=== PATIENT | female | born 1995 | race Caucasian/White ===

== ENCOUNTER 2016-11-04 19:24 | Emergency (ER) | payer MEDICAID, OTHER ==
[~2016-11-04] VITALS: Ht 165.1 cm; Wt 70.0 kg
[~2016-11-04 19:24] MED LIST: PREN-88 PO
[2016-11-04] MEDS ORDERED: ACETAMINOPHEN 325MG TABLET PO ONE (21:45)
[2016-11-04] MEDS ORDERED: ONDANSETRON 4MG ODT PO ONE (22:00)
[2016-11-04 22:26] LABS: CLARITY URINE CLEAR (CLEAR); COLOR URINE YELLOW (YELLOW); GLUCOSE URINE NEGATIVE (NEGATIVE); KETONES URINE NEGATIVE (NEGATIVE); LEUKOCYTE ESTERASE URINE TRACE (NEGATIVE); NITRITE URINE NEGATIVE (NEGATIVE); OCCULT BLOOD URINE NEGATIVE (NEGATIVE); PROTEIN URINE NEGATIVE (NEGATIVE); SPECIFIC GRAVITY URINE 1.014 (1.005-1.030); UROBILINOGEN URINE 0.2 E.U./dL (0.2-1.0)
[2016-11-04 22:33] LABS: HEMOGLOBIN. 11.7 g/dL (12.0-16.0); MEAN CORPUSCULAR HEMOGLOBIN 31.1 pg (28.0-32.0); MEAN CORPUSCULAR HGB CONC 34.5 g/dL (31.0-37.0); MEAN CORPUSCULAR VOLUME 90.1 fL (81.0-99.0); PLATELET 236 x1000/uL (130-400); RED BLOOD CELL COUNT 3.78 mill/uL (4.2-5.4); RED CELL DISTRIBUTION WIDTH 12.8 % (11.6-14.6); WHITE BLOOD COUNT 8.5 x1000/uL (4.5-11.0)
[2016-11-04 22:36] LABS: HCG SCREEN POSITIVE
[2016-11-04 22:37] LABS: CHLORIDE 103 mEq/L (98-107); INDEX HEMOLYSI 1 (1-3); INDEX ICTERIC 1 (1-4); INDEX LIPEMIC 1 (1-3)
[2016-11-04 22:43] LABS: ANION GAP 12; CALCIUM 8.1 mg/dL (8.5-10.1); CARBON DIOXIDE 27 mEq/L (21-32); UREA NITROGEN BLOOD 8 mg/dL (7-21); eGFR > 60 mL/min (>60)
[2016-11-04 22:44] LABS: RBC URINE NONE SEEN /hpf (0-2); SQUAMOUS EPITHELIAL CELL URINE 1+ /lpf (RARE/1+); WBC URINE NONE SEEN /hpf (0-2)
[2016-11-04 22:45] LABS: BACTERIA URINE 1+
[2016-11-04 22:46] LABS: PLATELET ESTIMATE NORMAL
[2016-11-05 00:56] VITALS: BP 115/79
== END 2016-11-05 02:08 | disposition home or self-care (01) ==
LOC: ER 21:34
DX: O26.892 Other specified pregnancy related conditions, second trimester (principal); R10.2 Pelvic and perineal pain; Z3A.18 18 weeks gestation of pregnancy
CPT/HCPCS: 36415; 76700; 76805; 76857; 80048; 81001; 84703; 85007; 85027; 86850; 86900; 86901; 99285; Q0162; Z7610

== ENCOUNTER 2017-04-05 04:16 | Inpatient (IN) | payer MEDICAID, OTHER ==
[~2017-04-05] VITALS: Ht 165.1 cm; Wt 82.6 kg
[2017-04-05] MEDS ORDERED: LACTATED RINGERS 1,000 ML IV SCH (05:24)
[2017-04-05] MEDS ORDERED: DEXT 5%/LR + PITOCIN 20UNITS/L 1,000 ML IV SCH (05:24)
[2017-04-05] MEDS ORDERED: METHYLERGONOVINE MALEATE 0.2 MG/ML IM PRN ×2 (05:30→09:00)
[2017-04-05] MEDS ORDERED: BUTORPHANOL TARTRATE 2 MG/ML VIAL IV PRN (05:30)
[2017-04-05] MEDS ORDERED: AMPICILLIN 2,000 MG in SODIUM CHLORIDE 0.9% 100 ML IV SCH (05:30)
[2017-04-05] MEDS ORDERED: MISOPROSTOL 100MCG TABLET VG SCH (05:30)
[2017-04-05 06:21] LABS: BASOPHILS % 0.3 % (0.0-2.0); EOSINOPHILS % 0.1 % (0.0-5.0); HEMATOCRIT. 37.8 % (36.0-48.0); HEMOGLOBIN. 12.9 g/dL (12.0-16.0); LYMPHOCYTES % 10.3 % (20.0-50.0); MEAN CORPUSCULAR HEMOGLOBIN 30.6 pg (28.0-32.0); MEAN CORPUSCULAR VOLUME 90.1 fL (81.0-99.0); MEAN PLATELET VOLUME 8.7 fl (7.4-10.4); NEUTROPHILS % 85.3 % (40.0-76.0); PLATELET 223 x1000/uL (130-400); RED BLOOD CELL COUNT 4.19 mill/uL (4.2-5.4); RED CELL DISTRIBUTION WIDTH 12.5 % (11.6-14.6)
[2017-04-05 06:28] LABS: INR 0.9; PARTIAL THROMBOPLASTIN TIME 32.2 sec (23.4-31.0); PROTHROMBIN TIME 9.7 sec (9.4-11.6)
[2017-04-05 06:35] LABS: GLUCOSE URINE NEGATIVE (NEGATIVE); KETONES URINE NEGATIVE (NEGATIVE); LEUKOCYTE ESTERASE URINE 2+ (NEGATIVE); NITRITE URINE NEGATIVE (NEGATIVE); OCCULT BLOOD URINE NEGATIVE (NEGATIVE); PROTEIN URINE NEGATIVE (NEGATIVE); SPECIFIC GRAVITY URINE 1.016 (1.005-1.030); UROBILINOGEN URINE 0.2 E.U./dL (0.2-1.0)
[2017-04-05 06:45] LABS: CLARITY URINE CLEAR (CLEAR); COLOR URINE YELLOW (YELLOW)
[2017-04-05 06:54] LABS: *AMPHETAMINES SCREEN URINE NEGATIVE (NEGATIVE); *BARBITURATES SCREEN URINE NEGATIVE (NEGATIVE); *BENZODIAZEPINES SCREEN URINE NEGATIVE (NEGATIVE); *COCAINE SCREEN URINE NEGATIVE (NEGATIVE); CANNABINOID URINE SCREEN NEGATIVE (NEGATIVE); METHADONE URINE SCREEN NEGATIVE (NEGATIVE); OPIATES URINE SCREEN NEGATIVE (NEGATIVE); PHENCYCLIDINE URINE SCREEN NEGATIVE (NEGATIVE)
[2017-04-05 06:59] LABS: HEPATITIS B SURFACE ANTIGEN NEGATIVE; RUBELLA IGG 40.9 IU/mL (4.99-10)
[2017-04-05] MEDS ORDERED: LIDOCAINE HCL 1% 20ML VIAL (Pyxis) INJ ONE (08:31)
[2017-04-05] MEDS ORDERED: RHO(D) IMMUNE GLOBULIN 300 MCG/SYR IM PRN (09:00)
[2017-04-05] MEDS ORDERED: IBUPROFEN 400MG TABLET PO PRN (09:00)
[2017-04-05] MEDS ORDERED: BISACODYL 10MG SUPP PR PRN (09:00)
[2017-04-05] MEDS ORDERED: OXYCODONE HCL/ACETAMINOPHEN 5/325MG TABLET PO PRN ×2 (09:00)
[2017-04-05] MEDS ORDERED: PRENATAL VIT/FE FUMARATE/FA TABLET PO SCH (09:00)
[2017-04-05] MEDS ORDERED: LANOLIN OINT 0.25 GM TUBE TOP PRN (09:00)
[2017-04-05] MEDS ORDERED: DIPHENHYDRAMINE 25MG CAPSULE PO PRN (09:00)
[2017-04-05] MEDS: DEXT 5%/LR + PITOCIN 20UNITS/L 1,000 ML IV SCH ×2 (09:45→10:16)
[2017-04-05 11:00] VITALS: BP 104/51
[2017-04-05 11:45] VITALS: BP 98/51
[2017-04-05] MEDS ORDERED: AMPICILLIN 1,000 MG in SODIUM CHLORIDE 0.9% 50 ML IV SCH (12:00)
[2017-04-05] MEDS ORDERED: BENZOCAINE/LANOLIN/ALOE VERA SPRAY TOP PRN (14:30)
[2017-04-05 17:40] VITALS: BP 105/63
[2017-04-05 20:10] VITALS: BP 99/68
[2017-04-05] MEDS: DOCUSATE SODIUM 100MG CAPSULE PO SCH (21:22)
[2017-04-05] MEDS: IBUPROFEN 800MG TABLET PO PRN (21:22)
[2017-04-06 04:45] VITALS: BP 90/56
[2017-04-06 06:48] LABS: BASOPHILS % 0.2 % (0.0-2.0); EOSINOPHILS % 1.3 % (0.0-5.0); HEMATOCRIT. 36.8 % (36.0-48.0); HEMOGLOBIN. 12.5 g/dL (12.0-16.0); LYMPHOCYTES % 17.8 % (20.0-50.0); MEAN CORPUSCULAR HEMOGLOBIN 31.1 pg (28.0-32.0); MEAN CORPUSCULAR VOLUME 91.7 fL (81.0-99.0); MEAN PLATELET VOLUME 8.6 fl (7.4-10.4); MONOCYTES % 5.7 % (2.0-8.0); PLATELET 209 x1000/uL (130-400); RED BLOOD CELL COUNT 4.02 mill/uL (4.2-5.4); RED CELL DISTRIBUTION WIDTH 12.8 % (11.6-14.6)
[2017-04-06 08:15] VITALS: BP 90/56
[2017-04-06] MEDS: IBUPROFEN 800MG TABLET PO PRN ×2 (11:54→22:18)
[2017-04-06] MEDS ORDERED: FERROUS SULFATE 325MG TABLET PO SCH (12:10)
[2017-04-06 16:50] VITALS: BP 115/75
[2017-04-06 21:35] VITALS: BP 102/53
[2017-04-06] MEDS: DOCUSATE SODIUM 100MG CAPSULE PO SCH (22:12)
[2017-04-07] MEDS: AMOXICILLIN 500 MG CAPSULE PO SCH ×2 (00:14→07:00)
[2017-04-07] MEDS: GUAIFENESIN-DM 200MG-20MG/10ML UDC PO PRN ×2 (00:14→07:00)
[2017-04-07 08:00] VITALS: BP 105/57
== END 2017-04-07 14:00 | disposition home or self-care (01) | DRG 560 ==
LOC: L&D 04:16 → OBSVTOIN 04:16 → 7EST PP/OB 11:17
PROVIDERS: ADMIT Obstetrics & Gynecology; ATTEND Obstetrics & Gynecology
PROC: 0HQ9XZZ Repair Perineum Skin, External Approach (ICD-10-PCS; 2017-04-05)
PROC: 10E0XZZ Delivery of Products of Conception, External Approach (ICD-10-PCS; principal; 2017-04-05 10:00)
DX: O99.52 Diseases of the respiratory system complicating childbirth (principal); J02.9 Acute pharyngitis, unspecified; O70.0 First degree perineal laceration during delivery; R05 Cough; Z37.0 Single live birth; Z3A.39 39 weeks gestation of pregnancy
CPT/HCPCS: 36415; 80305; 81001; 85025; 85610; 85730; 86592; 86703; 86762; 86850; 86900; 87340; J0290; J2590; J3490; J7050; J7120

== ENCOUNTER 2019-02-01 09:47 | Inpatient (IN) | payer MEDICAID ==
[~2019-02-01] VITALS: Ht 165.1 cm; Wt 88.5 kg
[2019-02-01] MEDS ORDERED: DEXT 5%/LR + PITOCIN 20UNITS/L 1,000 ML IV SCH ×2 (11:15→15:03)
[2019-02-01] MEDS ORDERED: METHYLERGONOVINE MALEATE 0.2 MG/ML IM PRN (11:15)
[2019-02-01] MEDS ORDERED: LIDOCAINE HCL 1% 20ML VIAL (Pyxis) INJ INFIL SCH (11:15)
[2019-02-01] MEDS ORDERED: NALOXONE HCL 0.4 MG/ML 1ML VIAL IM PRN (11:15)
[2019-02-01] MEDS ORDERED: LACTATED RINGERS 1,000 ML IV SCH (11:30)
[2019-02-01] MEDS ORDERED: AMPICILLIN 2,000 MG in SODIUM CHLORIDE 0.9% 100 ML IV SCH (12:00)
[2019-02-01 12:02] LABS: BASOPHILS % 0.3 % (0.0-2.0); HEMATOCRIT. 36.1 % (36.0-48.0); HEMOGLOBIN. 12.5 g/dL (12.0-16.0); LYMPHOCYTES % 16.6 % (20.0-50.0); MEAN CORPUSCULAR HEMOGLOBIN 30.5 pg (28.0-32.0); MEAN CORPUSCULAR VOLUME 88.4 fL (81.0-99.0); MEAN PLATELET VOLUME 8.1 fl (7.4-10.4); MONOCYTES % 5.2 % (2.0-8.0); NEUTROPHILS % 76.9 % (40.0-76.0); PLATELET 252 x1000/uL (130-400); RED BLOOD CELL COUNT 4.09 mill/uL (4.2-5.4); RED CELL DISTRIBUTION WIDTH 13.4 % (11.6-14.6)
[2019-02-01 12:13] LABS: INR 0.9; PARTIAL THROMBOPLASTIN TIME 32.7 sec (23.4-31.0); PROTHROMBIN TIME 9.6 sec (9.6-11.0)
[2019-02-01 12:14] LABS: *AMPHETAMINES SCREEN URINE NEGATIVE (NEGATIVE); *BARBITURATES SCREEN URINE NEGATIVE (NEGATIVE); *BENZODIAZEPINES SCREEN URINE NEGATIVE (NEGATIVE); *COCAINE SCREEN URINE NEGATIVE (NEGATIVE); METHADONE URINE SCREEN NEGATIVE (NEGATIVE); OPIATES URINE SCREEN NEGATIVE (NEGATIVE)
[2019-02-01 12:15] LABS: CANNABINOID URINE SCREEN NEGATIVE (NEGATIVE); PHENCYCLIDINE URINE SCREEN NEGATIVE (NEGATIVE)
[2019-02-01 12:45] LABS: HEPATITIS B SURFACE ANTIGEN NEGATIVE
[2019-02-01] MEDS ORDERED: IBUPROFEN 400MG TABLET PO PRN (15:15)
[2019-02-01] MEDS ORDERED: RHO(D) IMMUNE GLOBULIN 300 MCG/SYR IM PRN (15:15)
[2019-02-01] MEDS: IBUPROFEN 800MG TABLET PO PRN (15:38)
[2019-02-01 17:48] VITALS: BP 109/54
[2019-02-01] MEDS ORDERED: AMPICILLIN 1,000 MG in SODIUM CHLORIDE 0.9% 50 ML IV SCH (18:00)
[2019-02-01 18:45] VITALS: BP 100/50
[2019-02-01 20:00] VITALS: BP 108/52
[2019-02-02] VITALS: BP 110/74
[2019-02-02] MEDS: IBUPROFEN 800MG TABLET PO PRN ×3 (05:22→17:19)
[2019-02-02 06:52] LABS: BASOPHILS % 0.4 % (0.0-2.0); EOSINOPHILS % 1.2 % (0.0-5.0); HEMOGLOBIN. 13.1 g/dL (12.0-16.0); LYMPHOCYTES % 22.3 % (20.0-50.0); MEAN CORPUSCULAR HEMOGLOBIN 30.9 pg (28.0-32.0); MEAN CORPUSCULAR VOLUME 89.7 fL (81.0-99.0); MEAN PLATELET VOLUME 8.5 fl (7.4-10.4); MONOCYTES % 4.4 % (2.0-8.0); NEUTROPHILS % 71.7 % (40.0-76.0); PLATELET 258 x1000/uL (130-400); RED BLOOD CELL COUNT 4.23 mill/uL (4.2-5.4); RED CELL DISTRIBUTION WIDTH 13.7 % (11.6-14.6)
[2019-02-02 09:30] VITALS: BP 116/70
[2019-02-02 16:30] VITALS: BP 93/63
[2019-02-02] MEDS: DOCUSATE SODIUM 100MG CAPSULE PO SCH (17:20)
[2019-02-02 20:00] VITALS: BP 112/69
[2019-02-03] VITALS: BP 108/65
[2019-02-03] MEDS: IBUPROFEN 800MG TABLET PO PRN ×2 (02:07→09:04)
[2019-02-03] MEDS: DOCUSATE SODIUM 100MG CAPSULE PO SCH (09:04)
[2019-02-03 09:30] VITALS: BP 104/56
== END 2019-02-03 14:40 | disposition home or self-care (01) | DRG 560 ==
LOC: 8 EST LDRP 09:47 → OBSVTOIN 09:47 → 8EST 17:39
PROVIDERS: ADMIT Obstetrics & Gynecology; ATTEND Obstetrics & Gynecology
PROC: 10E0XZZ Delivery of Products of Conception, External Approach (ICD-10-PCS; principal; 2019-02-01)
DX: O80 Encounter for full-term uncomplicated delivery (principal); Z37.0 Single live birth; Z3A.39 39 weeks gestation of pregnancy
CPT/HCPCS: 36415; 80305; 86592; 86703; 86762; 86850; 86900; 87340; 99281; J0290; J2590; J3490; J7050; J7120